=== PATIENT | female | born 1990 | race Two or more races ===

== ENCOUNTER 2016-10-22 07:21 | Emergency (ER) | payer SELFPAY ==
[~2016-10-22 07:21] MED LIST: AMOX1TAB10 PO; AMOX500C PO; ATEN-57 PO; ATEN100T PO; ATEN50TA PO; BENZ100C PO; BUTA1CAP29 PO; CIPR250T30 PO; CLAR500T PO; DICY20TA30 PO; DIPH25CA58 PO; DOCU-27 PO; DOCU100C5 PO; FERR-26 PO; FERR325T72 PO; FURO-68 PO; FURO20TA3 PO; HYDR-971 PO; HYDR200T PO; HYDR200T5 PO; LISI-334 PO; LISI2.5T PO; Lisinopril PO; MYCO250C PO; MYCO250C4 PO; OMEP20CA9 PO; OMEP40CA2 PO; OMEP40CA5 PO; PANT40TA3 PO; POLY17PO5 PO; PRED20TA PO; PROM25TA10 PO; TRAZ50TA15 PO
[2016-10-22] MEDS ORDERED: IV NORMAL SALINE 1000ML BAG 1,000 ML IV SCH (08:16)
[2016-10-22] MEDS ORDERED: ACETAMINOPHEN 500 MG TABLET PO ONE (08:30)
[2016-10-22 08:31] LABS: NEG OBC UR NEG; POS OBC UR POS
[2016-10-22 08:37] LABS: BILIRUBIN,URINE NEGATIVE (NEG); GLUCOSE,URINE NEGATIVE (NEG); NITRITE,URINE NEGATIVE (NEG); UROBILINOGEN,URINE 0.2 mg/dL (0.2 mg/dL)
[2016-10-22 08:54] LABS: PROTEIN,URINE 100 mg/dL (NEG-TRACE)
[2016-10-22 08:55] LABS: BACTERIA,URINE MODERATE /HPF (0-FEW); SQUAMOUS EPITHELIAL CELL,UR MOD /LPF
[2016-10-22 09:23] LABS: CALCIUM 8.4 mg/dL (8.5-10.1); CREATININE 1.5 mg/dL (0.6-1.0); GFR 41.7; POTASSIUM 3.9 mmol/L (3.5-5.1)
[2016-10-22 09:29] LABS: ALBUMIN 3.3 g/dL (3.4-5.0); ALBUMIN/GLOBULIN RATIO 0.9 (1.0-1.7); TOTAL BILIRUBIN 0.3 mg/dL (0.2-1.0); TOTAL PROTEIN 6.9 g/dL (6.4-8.2)
[2016-10-22 09:31] LABS: BASO % 0 % (0-3); EOS % 1 % (0-3); HEMATOCRIT 28.4 % (36.0-47.0); HEMOGLOBIN 9.7 g/dL (12.0-15.5); LYMPH # 1.5 x10^3/uL (1.0-4.8); LYMPH % 18 % (24-48); MEAN CORPUSCULAR HEMOGLOBIN 29 pg (25-35); MEAN CORPUSCULAR HGB CONC 34 g/dL (31-37); MEAN CORPUSCULAR VOLUME 85 fL (79-100); MONO % 6 % (0-9); NEUT % 75 % (31-73); PLATELET COUNT 228 x10^3/uL (140-400); RED BLOOD COUNT 3.35 x10^6/uL (3.50-5.40); RED CELL DISTRIBUTION WIDTH 13.3 % (11.5-14.5); WHITE BLOOD COUNT 8.6 x10^3/uL (4.0-11.0)
--- NOTE | 2016-10-22 10:07 | RAD ---
Indication pelvic pain. Nausea and dizziness. Reported positive urine test in the emergency room. Initially transabdominal scans were obtained. Initial transabdominal scans were supplemented with transvaginal scans.. A quantitative hCG value is not available. The uterus measures approximately 6.6 x 4.3 x 4.6 cm. On the transvaginal scans a gestational sac and yolk sac are seen. No pole is yet apparent. The findings would be compatible with an early, approximately 5 week, . The ovaries and adnexa appear unremarkable. IMPRESSION: Findings, as outlined above, compatible with early, approximately 5 week,
--- NOTE | 2016-10-22 10:13 | PHYS DOC ---
Past Medical History Past Medical History: Anemia, Hypertension, Renal Failure, UTI Additional Past Medical Histor: Glomerulonephritis syndrome, RF, Gastritis, Lupus Past Surgical History: Appendectomy Alcohol Use: None Drug Use: None Adult General Chief Complaint Chief Complaint: ABDOMINAL PAIN HPI HPI Patient is a 26 year old female with a history of chronic abdominal pain, lupus , and kidney disease, presents to the ED complaining of lower abdominal pain, lower back pain, nausea, some vomiting, for the last few days. Patient states she does not speak Mexican at all, she speaks Occitan, the sign language interpreter line was used. She is accompanied by a male significant other. Patient has been seen for abdominal pain in the ED in the past. She states that this pain is different in that it is also in her back. She does not have a current diagnosis of any chronic abdominal problem. The patient does have lupus and is on medications for that. She sees a doctor here [place] for her lupus and also sees Dr. Gonzalez for her kidney problems. She has been taking her medications as prescribed. Patient has been sexually active without contraception. She has been with the same male significant other for 4 years and has not used contraception and has not become . Has had no prior pregnancies. She also complains of headache since just today. She last took acetaminophen last night. Review of Systems Review of Systems Constitutional: Denies fever or chills [] Eyes: Denies change in visual acuity, redness, or eye pain [] HENT: Denies nasal congestion or sore throat [] Respiratory: Denies cough or shortness of breath [] Cardiovascular: Denies chest pain GI: As in history of present illness : Denies vaginal bleeding. Her last period was in early September. She usually does have a period monthly and she is late right now. Musculoskeletal: She has low back pain which she associates with her lower abdominal pain Integument: Denies rash or skin lesions [] Neurologic: She complains of a headache. Current Medications Current Medications Current Medications Medications (Trade) Dose Ordered Sig/Uma Start Time Stop Time Status Last Admin Dose Admin Acetaminophen (Tylenol) 1,000 mg 1X ONCE 10/22/16 08:30 10/22/16 08:31 DC 10/22/16 09:25 1,000 MG Sodium Chloride (Iv Sodium Chloride 0.9% 1000ml Bag) 1,000 ml @ 1,000 mls/hr Q1H 10/22/16 08:16 10/22/16 09:15 DC 10/22/16 09:24 1,000 MLS/HR Allergies Allergies Allergies Coded Allergies Type Severity Reaction Last Updated Verified No Known Drug Allergies 01/19/15 No Physical Exam Physical Exam Constitutional: Well developed, well nourished, no acute distress, non-toxic appearance. Alert, mentating normally, does not appear in any distress or dehydrated. HENT: Normocephalic, atraumatic, bilateral external ears normal, oropharynx moist, no oral exudates, nose normal. [] Eyes: conjunctiva normal, no discharge. [] Neck: Normal range of motion, no stridor. [] Cardiovascular:Heart rate regular rhythm, no murmur [] Lungs & Thorax: Bilateral breath sounds clear to auscultation [] Abdomen: Bowel sounds normal, soft, nondistended, uterus not palpable, no masses , no pulsatile masses. Mild tenderness to palpation in the suprapubic area. No tenderness bilaterally of the pelvis. No right lower quadrant tenderness. Skin: Warm, dry, no erythema, no rash. [] Back: No tenderness, no CVA tenderness. [] Extremities: No tenderness, no cyanosis, no clubbing, ROM intact, no edema. [] Neurologic: Alert and oriented X 3, normal motor function, normal sensory function, no focal deficits noted. [] Current Patient Data Vital Signs Vital Signs Date Time Temp Pulse Resp B/P Pulse Ox O2 Delivery O2 Flow Rate FiO2 10/22/16 07:42 98.8 20 122/66 Room Air 98.8 Lab Values Laboratory Tests Test 10/22/16 07:00 10/22/16 08:55 Urine Collection Type Void Urine Color Yellow Urine Clarity Clear Urine pH 6.0 Urine Specific [place] 1.010 Urine Protein 100mg/dL (NEG-TRACE) Urine Glucose (UA) Negativemg/dL (NEG) Urine Ketones (Stick) Negativemg/dL (NEG) Urine Blood Moderate (NEG) Urine Nitrite Negative (NEG) Urine Bilirubin Negative (NEG) Urine Urobilinogen Dipstick 0.2mg/dL (0.2 mg/dL) Urine Leukocyte Esterase Trace (NEG) Urine RBC 11-20/HPF (0-2) Urine WBC 1-4/HPF (0-4) Urine Squamous Epithelial Cells Mod/LPF Urine Bacteria Moderate/HPF (0-FEW) Urine Mucus Slight/LPF Urine Test Positive (NEG) White Blood Count 8.6x10^3/uL (4.0-11.0) Red Blood Count 3.35x10^6/uL (3.50-5.40) L Hemoglobin 9.7g/dL (12.0-15.5) L Hematocrit 28.4% (36.0-47.0) L Mean Corpuscular Volume 85fL (79-100) Mean Corpuscular Hemoglobin 29pg (25-35) Mean Corpuscular Hemoglobin Concent 34g/dL (31-37) Red Cell Distribution Width 13.3% (11.5-14.5) Platelet Count 228x10^3/uL (140-400) Neutrophils (%) (Auto) 75% (31-73) H Lymphocytes (%) (Auto) 18% (24-48) L Monocytes (%) (Auto) 6% (0-9) Eosinophils (%) (Auto) 1% (0-3) Basophils (%) (Auto) 0% (0-3) Neutrophils # (Auto) 6.5x10^3uL (1.8-7.7) Lymphocytes # (Auto) 1.5x10^3/uL (1.0-4.8) Monocytes # (Auto) 0.6x10^3/uL (0.0-1.1) Eosinophils # (Auto) 0.1x10^3/uL (0.0-0.7) Basophils # (Auto) 0.0x10^3/uL (0.0-0.2) Maternal Serum HCG Beta Subunit 652mIU/mL (0-6) H Sodium Level 143mmol/L (136-145) Potassium Level 3.9mmol/L (3.5-5.1) Chloride Level 106mmol/L (98-107) Carbon Dioxide Level 25mmol/L (21-32) Anion Gap 12 (6-14) Blood Urea Nitrogen 17mg/dL (7-20) Creatinine 1.5mg/dL (0.6-1.0) H Estimated GFR (Cockcroft-Gault) 41.7 BUN/Creatinine Ratio 11 (6-20) Glucose Level 99mg/dL (70-99) Calcium Level 8.4mg/dL (8.5-10.1) L Total Bilirubin 0.3mg/dL (0.2-1.0) Aspartate Amino Transferase (AST) 12U/L (15-37) L Alanine Aminotransferase (ALT) 8U/L (14-59) L Alkaline Phosphatase 69U/L (46-116) Total Protein 6.9g/dL (6.4-8.2) Albumin 3.3g/dL (3.4-5.0) L Albumin/Globulin Ratio 0.9 (1.0-1.7) L Lipase 363U/L (73-393) Laboratory Tests 10/22/16 08:55 Laboratory Tests 10/22/16 08:55 EKG EKG [] Radiology/Procedures Radiology/Procedures 26-year-old female who has a history of lupus and kidney disease, on medications for those conditions, who has had several ED visits for abdominal pain, presents today with lower abdominal pain and some nausea and vomiting. To her surprise, her test was positive. It's unclear whether this abdominal pain today is something that she has had before with her this is a new type of abdominal pain. She is having no vaginal bleeding. I discussed with the patient that we will get some labs and check a vaginal ultrasound and she is agreeable to that plan. Quantitative beta hCG 652. Labs are stable for this patient with anemia and kidney disease. OB ultrasound read by the radiologist remarkable only for a gestational sac consistent with 5 weeks, no pole or heart activity noted yet. Unremarkable ovaries and adnexa. Patient is stable for discharge home. I discussed with the patient drinking plenty of fluids when she is able. I encouraged her to see her lupus doctor and her kidney doctor as soon as possible but until then to continue taking all medications as prescribed. Also make an appointment with an OB doctor for a new OB evaluation as soon as possible. Course & Med Decision Making Course & Med Decision Making Pertinent Labs and Imaging studies reviewed. (See chart for details) [] Dragon Disclaimer Dragon Disclaimer This electronic medical record was generated, in whole or in part, using a voice recognition dictation system. Departure Departure Impression: Primary Impression: Gastroenteritis Additional Impression: Positive urine test Disposition: HOME, SELF-CARE Condition: STABLE Referrals: HEDY GONZALEZ MD (PCP) LINDQUIST,LYNN K MD Patient Instructions: Abdominal Pain During , [id number] Additional Instructions: Today, we did not find any serious cause of your symptoms. You may have had a stomach virus. Today your test was positive. Ultrasound shows that you are about 5 weeks . We date your from your last menstrual period. This means you are about 1 month . Your is so early, all they could see was a tiny little sac, they could not see a baby or heart beat yet. This may be because you are very early along in your . It is important to make follow-up appointments with your lupus doctor, your kidney specialist, and OB doctor. When you call for appointments, be sure to tell all of them that you are . Problem Qualifiers DIVYA ROSENTHAL MD Oct 22, 2016 10:12
[2016-10-22 10:51] VITALS: BP 112/69
== END 2016-10-22 11:16 | disposition home or self-care (01) ==
LOC: ER 07:21
DX: O26.891 Other specified pregnancy related conditions, first trimester (principal); K52.9 Noninfective gastroenteritis and colitis, unspecified; M54.5 Low back pain; I10 Essential (primary) hypertension; Z3A.01 Less than 8 weeks gestation of pregnancy
CPT/HCPCS: 36415; 76801; 76817; 80053; 81001; 81025; 83690; 84702; 85027; 87086; 96360; 99285; J7030

== ENCOUNTER 2016-10-25 21:33 | Observation (INO) | payer SELFPAY ==
[2016-10-25] MEDS ORDERED: IV RINGERS,LACTATED 1000ML 1,000 ML IV SCH (21:44)
[2016-10-25 22:47] LABS: BILIRUBIN,URINE NEGATIVE (NEG); GLUCOSE,URINE NEGATIVE (NEG); NITRITE,URINE NEGATIVE (NEG); PH,URINE 5.5; UROBILINOGEN,URINE 0.2 mg/dL (0.2 mg/dL)
[2016-10-25 22:51] LABS: PROTEIN,URINE 100 mg/dL (NEG-TRACE)
== END 2016-10-25 22:30 | disposition short-term general hospital (02) ==
LOC: 3 SO LND 21:33
PROVIDERS: ADMIT Specialist; ATTEND Specialist
DX: O22 Venous complications and hemorrhoids in pregnancy (principal); O26.891 Other specified pregnancy related conditions, first trimester; M54.5 Low back pain; Z3A.01 Less than 8 weeks gestation of pregnancy
CPT/HCPCS: 81003; G0378; G0379

== ENCOUNTER 2017-04-24 10:35 | Emergency (ER) | payer SELFPAY ==
[~2017-04-24] VITALS: Ht 160 cm; Wt 65.3 kg
[~2017-04-24 10:35] MED LIST changes: +DOCU-109 PO; -DOCU-27 PO; +DOCU100C28 PO; -DOCU100C5 PO; -MYCO250C4 PO; +MYCO250C44 PO; +POLY17PO29 PO; -POLY17PO5 PO
[2017-04-24 11:11] VITALS: BP 119/70
--- NOTE | 2017-04-24 11:12 | PHYS DOC ---
Past Medical History Past Medical History: Anemia, Hypertension, Renal Failure, UTI Additional Past Medical Histor: Glomerulonephritis syndrome, RF, Gastritis, Lupus Past Surgical History: Appendectomy Alcohol Use: None Drug Use: None Adult General Chief Complaint Chief Complaint: ABDOMINAL PAIN HPI HPI Patient is a 27 year old female presents to the emergency department with a history of epigastric pain for the last 3 weeks. Patient states it is a burning sensation. Has not take anything for the discomfort, however she has been seen for the pain in the past. Patient has a hx of Lupus. Denies nausea, vomiting or diarrhea. Review of Systems Review of Systems Constitutional: Denies fever or chills [] Eyes: Denies change in visual acuity, redness, or eye pain [] HENT: Denies nasal congestion or sore throat [] Respiratory: Denies cough or shortness of breath [] Cardiovascular: No additional information not addressed in HPI [] GI: epigastric abdominal pain, denies nausea, vomiting, bloody stools or diarrhea [] : Denies dysuria or hematuria [] Musculoskeletal: Denies back pain or joint pain [] Integument: Denies rash or skin lesions [] Neurologic: Denies headache, focal weakness or sensory changes [] Endocrine: Denies polyuria or polydipsia [] Current Medications Current Medications Current Medications Medications (Trade) Dose Ordered Sig/Uma Start Time Stop Time Status Last Admin Dose Admin Sucralfate (Carafate) 1 gm 1X ONCE 04/24/17 11:15 04/24/17 11:16 DC 04/24/17 11:18 1 GM Allergies Allergies Allergies Coded Allergies Type Severity Reaction Last Updated Verified No Known Drug Allergies 01/19/15 No Physical Exam Physical Exam Constitutional: Well developed, well nourished, no acute distress, non-toxic appearance. [] HENT: Normocephalic, atraumatic, bilateral external ears normal, oropharynx moist, no oral exudates, nose normal. [] Eyes: PERRLA, EOMI, conjunctiva normal, no discharge. [] Neck: Normal range of motion, no tenderness, supple, no stridor. [] Cardiovascular:Heart rate regular rhythm, no murmur [] Lungs & Thorax: Bilateral breath sounds clear to auscultation [] Abdomen: Bowel sounds hypoactive, soft, epigastric abdominal tenderness, no masses, no pulsatile masses. no rebound tenderness noted, no guarding noted. Skin: Warm, dry, no erythema, no rash. [] Back: No tenderness Extremities: No tenderness, no cyanosis, no clubbing, ROM intact, no edema. [] Neurologic: Alert and oriented X 3, normal motor function, normal sensory function, no focal deficits noted. [] Psychologic: Affect normal, judgement normal, mood normal. [] Current Patient Data Vital Signs Vital Signs Date Time Temp Pulse Resp B/P (MAP) Pulse Ox O2 Delivery O2 Flow Rate FiO2 04/24/17 11:11 98.6 82 16 119/70 (86) 100 Room Air 98.6 Lab Values Laboratory Tests Test 04/24/17 10:01 04/24/17 10:52 POC Urine HCG, Qualitative Hcg negative (Negative) Urine Collection Type Unknown Urine Color Yellow Urine Clarity Clear Urine pH 5.5 Urine Specific [place] 1.015 Urine Protein 100 mg/dL (NEG-TRACE) Urine Glucose (UA) Negative mg/dL (NEG) Urine Ketones (Stick) Negative mg/dL (NEG) Urine Blood Small (NEG) Urine Nitrite Negative (NEG) Urine Bilirubin Negative (NEG) Urine Urobilinogen Dipstick 0.2 mg/dL (0.2 mg/dL) Urine Leukocyte Esterase Negative (NEG) Urine RBC Occ /HPF (0-2) Urine WBC 0 /HPF (0-4) Urine Squamous Epithelial Cells Mod /LPF Urine Bacteria Moderate /HPF (0-FEW) Urine Hyaline Casts Few /HPF Urine Mucus Slight /LPF EKG EKG [] Radiology/Procedures Radiology/Procedures [] Course & Med Decision Making Course & Med Decision Making Pertinent Labs and Imaging studies reviewed. (See chart for details) Patient provided with carafate liquid here in the emergency department. 1144 Patient was re-evaluated after receiving carafate with patient stating her pain is better. Patient will be discharged home with carafate. Recommended to avoid fried, greasy, fatty foods. Patient will be discharged home in stable condition. Signs and symptoms to return to the emergency department has been provided. Recommended that patient followup with PCP in the next week. [] Dragon Disclaimer Dragon Disclaimer This electronic medical record was generated, in whole or in part, using a voice recognition dictation system. Departure Departure Impression: Primary Impression: Epigastric burning sensation Disposition: HOME, SELF-CARE Condition: STABLE Referrals: NO PCP (PCP) Patient Instructions: Gastroesophageal Reflux Disease, Adult, [id number] Additional Instructions: Activity as tolerated Medication as prescribed Avoid fried, greasy fatty foods. Followup with primary care provider in 7 days Return to emergency department as needed for signs and symptoms that become worse. Scripts Sucralfate (CARAFATE) 1 Gm/10 Ml Oral.susp 10 ML PO BID, #120 ML 1 Refill Prov: CARMELA MENDIOLA APRN 04/24/17 CARMELA MENDIOLA APRN Apr 24, 2017 11:12
[2017-04-24 11:13] LABS: BILIRUBIN,URINE NEGATIVE (NEG); GLUCOSE,URINE NEGATIVE (NEG); NITRITE,URINE NEGATIVE (NEG); PH,URINE 5.5; PROTEIN,URINE 100 mg/dL (NEG-TRACE); UROBILINOGEN,URINE 0.2 mg/dL (0.2 mg/dL)
[2017-04-24] MEDS ORDERED: SUCRALFATE 1 GM/10 ML ORAL.SUSP. PO ONE (11:15)
[2017-04-24 11:24] LABS: RBC,URINE OCC /HPF (0-2); WBC,URINE 0 /HPF (0-4)
[2017-04-24 11:25] LABS: BACTERIA,URINE MODERATE /HPF (0-FEW); SQUAMOUS EPITHELIAL CELL,UR MOD /LPF
[2017-04-24] MEDS ORDERED: SUCR1ORA5 PO (11:49)
== END 2017-04-24 12:50 | disposition home or self-care (01) ==
LOC: ER 10:35
DX: R10.13 Epigastric pain (principal); I12.9 Hypertensive chronic kidney disease with stage 1 through stage 4 chronic kidney disease, or unspecified chronic kidney disease; N18.9 Chronic kidney disease, unspecified; M32.9 Systemic lupus erythematosus, unspecified; Z87.440 Personal history of urinary (tract) infections; Z90.49 Acquired absence of other specified parts of digestive tract
CPT/HCPCS: 81001; 81025; 87086; 99284

== ENCOUNTER 2017-05-29 20:31 | Emergency (ER) | payer SELFPAY ==
[~2017-05-29 20:31] MED LIST changes: +ACET325T9 PO; +CHOL200074 PO; +FOLI1CAP5 PO; +LISI10TA2 PO; +NORE0.356 PO; +ONDA4TAB10 SL; +PANT40TA5 PO; +PRED-220 PO; +SUCR1ORA5 PO
[2017-05-29 21:10] LABS: BILIRUBIN,URINE NEGATIVE (NEG); GLUCOSE,URINE NEGATIVE (NEG); NITRITE,URINE NEGATIVE (NEG); PROTEIN,URINE 100 mg/dL (NEG-TRACE); UROBILINOGEN,URINE 0.2 mg/dL (0.2 mg/dL)
[2017-05-29 21:13] LABS: NEG OBC UR NEG; POS OBC UR POS
[2017-05-29] MEDS ORDERED: IV NORMAL SALINE 1000ML BAG 1,000 ML IV ONE (21:15)
[2017-05-29 21:17] LABS: BACTERIA,URINE MODERATE /HPF (0-FEW); SQUAMOUS EPITHELIAL CELL,UR MANY /LPF
[2017-05-29] MEDS ORDERED: ONDANSETRON PF 4 MG/2 ML VIAL. IV ONE (21:45)
[2017-05-29] MEDS ORDERED: ACETAMINOPHEN 500 MG TABLET PO ONE (21:45)
[2017-05-29] MEDS ORDERED: MORPHINE SULFATE 10 MG/ML VIAL. IV ONE (21:45)
--- NOTE | 2017-05-29 21:47 | PHYS DOC ---
Past Medical History Past Medical History: Anemia, Hypertension, Renal Failure, UTI Additional Past Medical Histor: Glomerulonephritis syndrome, RF, Gastritis, Lupus Past Surgical History: Appendectomy Alcohol Use: None Drug Use: None Adult General Chief Complaint Chief Complaint: SORE THROAT HPI HPI Patient is a 27 year old female presenting to the emergency department for multiple complaints including sore throat cough nasal congestion runny nose abdominal pain nausea and not feeling well. Patient has a history of lupus with possible kidney involvement and follows with a application support engineer and rehabilitation aide/scheduler. Patient was interviewed with blue phone certified court interpreter. I asked her what her primary complaint was today and she said that she does not have a primary complaint rather she says all of those symptoms are bothering her the most. The cough is nonproductive and has been going on for 2-3 days along with all the other symptoms as above. The abdominal pain is generalized and she says she was seen for a stomach infection recently. She made it sound as if this was 6 months ago but looking through the chart it appears she was seen in the emergency department on May [address] compatible with enteritis. Patient was wanting follow-up for the breast mass that was seen on the CT however it appears that she had a breast ultrasound the next day which look like a benign fibroadenoma but they wanted six-month follow-up. Patient is very difficult to get history from as certified court interpreter had to keep asking for clarification as she did not answer questions directly and she kept talking about other things other than my questions. Review of Systems Review of Systems Constitutional: + fever, chills [] Eyes: Denies change in visual acuity, redness, or eye pain [] HENT: + nasal congestion, sore throat [] Respiratory: + cough. No shortness of breath [] Cardiovascular: No additional information not addressed in HPI [] GI: + abdominal pain, nausea. No vomiting, bloody stools or diarrhea [] : Denies dysuria or hematuria [] Musculoskeletal: Denies back pain or joint pain [] Integument: Denies rash or skin lesions [] Neurologic: Denies headache, focal weakness or sensory changes [] Current Medications Current Medications Current Medications Medications (Trade) Dose Ordered Sig/Uma Start Time Stop Time Status Last Admin Dose Admin Acetaminophen (Tylenol) 1,000 mg 1X ONCE 05/29/17 21:45 05/29/17 21:46 DC 05/29/17 21:00 1,000 MG Morphine Sulfate 5 mg 1X ONCE 05/29/17 21:45 05/29/17 21:46 DC 05/29/17 22:14 5 MG Ondansetron HCl (Zofran) 8 mg 1X ONCE 05/29/17 21:45 05/29/17 21:46 DC 05/29/17 22:15 8 MG Sodium Chloride 1,000 ml @ 1,000 mls/hr 1X ONCE 05/29/17 21:15 05/29/17 22:14 DC 05/29/17 22:16 1,000 MLS/HR Allergies Allergies Allergies Coded Allergies Type Severity Reaction Last Updated Verified No Known Drug Allergies 01/19/15 No Physical Exam Physical Exam Constitutional: Well developed, well nourished, no acute distress, non-toxic appearance. [] HENT: Normocephalic, atraumatic, bilateral external ears normal, pharynx erythemetous, no oral exudates, nose normal. [] Eyes: PERRLA, EOMI, conjunctiva normal, no discharge. [] Neck: Normal range of motion, no tenderness, supple, no stridor. [] Cardiovascular:Heart rate regular rhythm but tachycardic at 110, no murmur [] Lungs & Thorax: Bilateral breath sounds clear to auscultation [] Abdomen: Bowel sounds normal, soft, no tenderness, no masses, no pulsatile masses. [] Skin: Warm, dry, no erythema, no rash. [] Back: No tenderness, no CVA tenderness. [] Extremities: No tenderness, no cyanosis, no clubbing, ROM intact, no edema. [] Neurologic: Alert and oriented X 3, normal motor function, normal sensory function, no focal deficits noted. [] Current Patient Data Vital Signs Vital Signs Date Time Temp Pulse Resp B/P (MAP) Pulse Ox O2 Delivery O2 Flow Rate FiO2 05/29/17 23:26 98.3 85 13 113/67 (82) 99 98.3 05/29/17 22:14 Room Air Lab Values Laboratory Tests Test 05/29/17 21:00 05/29/17 22:02 Urine Collection Type Unknown Urine Color Yellow Urine Clarity Clear Urine pH 6.0 Urine Specific [place] 1.015 Urine Protein 100 mg/dL (NEG-TRACE) Urine Glucose (UA) Negative mg/dL (NEG) Urine Ketones (Stick) Negative mg/dL (NEG) Urine Blood Large (NEG) Urine Nitrite Negative (NEG) Urine Bilirubin Negative (NEG) Urine Urobilinogen Dipstick 0.2 mg/dL (0.2 mg/dL) Urine Leukocyte Esterase Small (NEG) Urine RBC 11-20 /HPF (0-2) Urine WBC 11-20 /HPF (0-4) Urine Squamous Epithelial Cells Many /LPF Urine Bacteria Moderate /HPF (0-FEW) Urine Test Negative (NEG) White Blood Count 9.8 x10^3/uL (4.0-11.0) Red Blood Count 2.91 x10^6/uL (3.50-5.40) L Hemoglobin 8.6 g/dL (12.0-15.5) L Hematocrit 25.7 % (36.0-47.0) L Mean Corpuscular Volume 88 fL (79-100) Mean Corpuscular Hemoglobin 30 pg (25-35) Mean Corpuscular Hemoglobin Concent 34 g/dL (31-37) Red Cell Distribution Width 13.2 % (11.5-14.5) Platelet Count 205 x10^3/uL (140-400) Neutrophils (%) (Auto) 70 % (31-73) Lymphocytes (%) (Auto) 15 % (24-48) L Monocytes (%) (Auto) 9 % (0-9) Eosinophils (%) (Auto) 5 % (0-3) H Basophils (%) (Auto) 1 % (0-3) Neutrophils # (Auto) 6.9 x10^3uL (1.8-7.7) Lymphocytes # (Auto) 1.5 x10^3/uL (1.0-4.8) Monocytes # (Auto) 0.8 x10^3/uL (0.0-1.1) Eosinophils # (Auto) 0.5 x10^3/uL (0.0-0.7) Basophils # (Auto) 0.1 x10^3/uL (0.0-0.2) Prothrombin Time 13.4 SEC (11.7-14.0) Prothrombin Time INR 1.1 (0.8-1.1) PTT 36 SEC (24-38) Sodium Level 141 mmol/L (136-145) Potassium Level 3.6 mmol/L (3.5-5.1) Chloride Level 104 mmol/L (98-107) Carbon Dioxide Level 26 mmol/L (21-32) Anion Gap 11 (6-14) Blood Urea Nitrogen 27 mg/dL (7-20) H Creatinine 1.6 mg/dL (0.6-1.0) H Estimated GFR (Cockcroft-Gault) 38.4 BUN/Creatinine Ratio 17 (6-20) Glucose Level 96 mg/dL (70-99) Calcium Level 8.4 mg/dL (8.5-10.1) L Total Bilirubin 0.2 mg/dL (0.2-1.0) Aspartate Amino Transferase (AST) 10 U/L (15-37) L Alanine Aminotransferase (ALT) 12 U/L (14-59) L Alkaline Phosphatase 52 U/L (46-116) Creatine Kinase 25 U/L (26-192) L Total Protein 6.3 g/dL (6.4-8.2) L Albumin 3.3 g/dL (3.4-5.0) L Albumin/Globulin Ratio 1.1 (1.0-1.7) Lipase 379 U/L (73-393) Laboratory Tests 05/29/17 22:02 Laboratory Tests 05/29/17 22:02 EKG EKG [] Radiology/Procedures Radiology/Procedures History: Diffuse abdominal pain. Comparison: CT abdomen pelvis May 03, 2017. Technique: CT of the abdomen and pelvis was performed without intravenous or oral contrast. Exposure: One or more of the following individualized dose reduction techniques were utilized for this examination: 1. Automated exposure control 2. Adjustment of the mA and/or kV according to patient size 3. Use of iterative reconstruction technique Findings: Evaluation of solid organs is limited by lack of intravenous contrast. Evaluation of enteric structures may be limited by lack of oral contrast. Images of lower chest again demonstrate ovoid, lobulated breast mass involving the inferior left breast. Liver, spleen, pancreas, gallbladder, and bilateral adrenal glands are unremarkable. Bilateral kidneys and ureters are free stone or obstruction. No bowel obstruction or inflammation is identified. Urinary bladder is unremarkable. Uterus and adnexa unremarkable CT appearance. Impression: 1. No acute abnormality identified in the abdomen or pelvis. No evidence of urinary stone. 2. Left breast mass. Correlate with reports of breast imaging. Electronically signed by: Jose Juan Blevins MD (05/29/2017 11:33 PM) [facility] DICTATED and SIGNED BY: JOSE JUAN BLEVINS MD DATE: 05/29/172328 Normal heart size normal mediastinum and no obvious free air pneumothorax or opacity on chest x-ray Course & Med Decision Making Course & Med Decision Making Patient with nonspecific upper respiratory symptoms and abdominal pain with a fever. Likely viral in etiology however given patient's history we'll go ahead and treat with Zithromax. I will recommend that she takes Nasonex and will provide Donner for pain and cough and have her follow with her primary care provider in 2-3 days and come back to the ED sooner with worsening pain shortness of breath or other general concerns. Patient aware and agreeable with plan for discharge and verbalized understanding of the need for short-term follow-up and strict ED return precautions discussed as above. Of note patient asked me to refill her hydroxylate chlorothiazide which is one of her lupus medications. Patient does not have a primary care provider so I will do this for her but I told her she very much needs a primary care provider. Patient verbalized understanding. Dragon Disclaimer Dragon Disclaimer This electronic medical record was generated, in whole or in part, using a voice recognition dictation system. Departure Departure Impression: Primary Impression: Abdominal pain Additional Impression: Viral syndrome Disposition: 01 HOME, SELF-CARE Condition: STABLE Referrals: NO PCP (PCP) TERESA SOSA MD Patient Instructions: Viral Syndrome Additional Instructions: DRINK PLENTY OF FLUIDS AND EAT A GOOD DIET. TAKE OTC NASONEX FOR YOUR COUGH AND SINUS CONGESTION. TAKE 650MG OF TYLENOL EVERY 6 HOURS FOR YOUR FEVER. FOLLOW WITH YOUR PCP IN THE NEXT 2-3 DAYS AND COME BACK TO THE ED SOONER WITH ANY NEW OR WORSENING PAIN, SOA, OR OTHER GENERAL CONCERNS. Scripts Hydroxychloroquine Sulfate (HYDROXYCHLOROQUINE SULFATE) 200 Mg Tablet 1 TAB PO BID, #60 TAB 0 Refills Prov: ISAI HOFFMANN DO 05/30/17 Ondansetron (ZOFRAN ODT) 4 Mg Tab.rapdis 4 MG PO BID Y for NAUSEA/VOMITING, #10 TAB Prov: ISAI HOFFMANN DO 05/30/17 Azithromycin (ZITHROMAX PACKET) 1 Gm Packet 1 PACKET PO ONCE, #1 PACKET Prov: ISAI HOFFMANN DO 05/30/17 Hydrocodone/Apap 5-325 (NORCO 5-325 TABLET) 1 Each Tablet 1 TAB PO PRN Q6HRS Y for PAIN, #14 TAB 0 Refills Prov: ISAI HOFFMANN DO 05/30/17 Problem Qualifiers Primary Impression: Abdominal pain Abdominal location: generalized Qualified Codes: R10.84 - Generalized abdominal pain ISAI HOFFMANN DO May 29, 2017 21:46
[2017-05-29 22:18] LABS: BASO # 0.1 x10^3/uL (0.0-0.2); BASO % 1 % (0-3); EOS % 5 % (0-3); HEMATOCRIT 25.7 % (36.0-47.0); HEMOGLOBIN 8.6 g/dL (12.0-15.5); LYMPH # 1.5 x10^3/uL (1.0-4.8); LYMPH % 15 % (24-48); MEAN CORPUSCULAR HEMOGLOBIN 30 pg (25-35); MEAN CORPUSCULAR HGB CONC 34 g/dL (31-37); MEAN CORPUSCULAR VOLUME 88 fL (79-100); MONO % 9 % (0-9); NEUT % 70 % (31-73); PLATELET COUNT 205 x10^3/uL (140-400); RED BLOOD COUNT 2.91 x10^6/uL (3.50-5.40); RED CELL DISTRIBUTION WIDTH 13.2 % (11.5-14.5); WHITE BLOOD COUNT 9.8 x10^3/uL (4.0-11.0)
[2017-05-29 22:28] LABS: INR 1.1 (0.8-1.1); PROTHROMBIN TIME PATIENT 13.4 SEC (11.7-14.0)
[2017-05-29 22:33] LABS: CALCIUM 8.4 mg/dL (8.5-10.1); CREATININE 1.6 mg/dL (0.6-1.0); GFR 38.4; POTASSIUM 3.6 mmol/L (3.5-5.1)
[2017-05-29 22:39] LABS: ALBUMIN 3.3 g/dL (3.4-5.0); ALBUMIN/GLOBULIN RATIO 1.1 (1.0-1.7); TOTAL BILIRUBIN 0.2 mg/dL (0.2-1.0); TOTAL PROTEIN 6.3 g/dL (6.4-8.2)
[2017-05-29 23:26] VITALS: BP 113/67
--- NOTE | 2017-05-29 23:36 | RAD ---
History: Diffuse abdominal pain. Comparison: CT abdomen pelvis May 03, 2017. Technique: CT of the abdomen and pelvis was performed without intravenous or oral contrast. Exposure: One or more of the following individualized dose reduction techniques were utilized for this examination: 1. Automated exposure control 2. Adjustment of the mA and/or kV according to patient size 3. Use of iterative reconstruction technique Findings: Evaluation of solid organs is limited by lack of intravenous contrast. Evaluation of enteric structures may be limited by lack of oral contrast. Images of lower chest again demonstrate ovoid, lobulated breast mass involving the inferior left breast. Liver, spleen, pancreas, gallbladder, and bilateral adrenal glands are unremarkable. Bilateral kidneys and ureters are free stone or obstruction. No bowel obstruction or inflammation is identified. Urinary bladder is unremarkable. Uterus and adnexa unremarkable CT appearance. Impression: 1. No acute abnormality identified in the abdomen or pelvis. No evidence of urinary stone. 2. Left breast mass. Correlate with reports of breast imaging. Electronically signed by: Jose Juan Blevins MD (05/29/2017 11:33 PM) [facility]
[2017-05-30] MEDS ORDERED: HYDR200T5 PO (00:11)
[2017-05-30] MEDS ORDERED: AZIT1PAC PO (00:11)
[2017-05-30] MEDS ORDERED: ONDA4TAB10 PO (00:11)
[2017-05-30] MEDS ORDERED: HYDR-971 PO (00:11)
[2017-05-30 06:56] LABS: NEGATIVE OBC STREP NEG; POSITIVE OBC STREP POS
--- NOTE | 2017-05-30 08:02 | RAD ---
Single view chest History:Cough for one week An AP view of the chest is submitted. Comparison: 05/20/2016. Findings: There is no significant infiltrate, pleural effusion, or pneumothorax. The pericardial cardiac silhouette is within normal limits in size. The trachea is in the midline. No acute osseous abnormality is identified. Impression: There is no evidence of acute cardiopulmonary disease.
== END 2017-05-30 00:23 | disposition home or self-care (01) ==
LOC: ER 20:31
DX: R10.84 Generalized abdominal pain (principal); B34.9 Viral infection, unspecified; I12.9 Hypertensive chronic kidney disease with stage 1 through stage 4 chronic kidney disease, or unspecified chronic kidney disease; N18.9 Chronic kidney disease, unspecified; M32.9 Systemic lupus erythematosus, unspecified; Z87.440 Personal history of urinary (tract) infections; Z90.49 Acquired absence of other specified parts of digestive tract
CPT/HCPCS: 36415; 71010; 74176; 80053; 81001; 81025; 82550; 83690; 85025; 85610; 85730; 87040; 87070; 87086; 87880; 96361; 96374; 96375; 99285; J2270; J2405; J7030

== ENCOUNTER 2017-08-14 19:00 | Emergency (ER) | payer SELFPAY ==
[~2017-08-14] VITALS: Ht 160 cm; Wt 63.5 kg
[~2017-08-14 19:00] MED LIST changes: +AZIT1PAC PO; +IBUP-1007 PO; +IRON1TAB2 PO; +ONDA4TAB10 PO
[2017-08-14] MEDS ORDERED: ACETAMINOPHEN 325 MG TABLET. PO ONE (20:00)
[2017-08-14] MEDS ORDERED: ONDANSETRON PF 4 MG/2 ML VIAL. IV ONE (20:00)
[2017-08-14] MEDS ORDERED: ONDANSETRON ODT 4 MG TAB.RAPDIS. ONE (20:03)
[2017-08-14 20:12] LABS: BASO # 0.1 x10^3/uL (0.0-0.2); BASO % 1 % (0-3); EOS % 1 % (0-3); HEMATOCRIT 30.7 % (36.0-47.0); HEMOGLOBIN 10.1 g/dL (12.0-15.5); LYMPH # 1.4 x10^3/uL (1.0-4.8); LYMPH % 11 % (24-48); MEAN CORPUSCULAR HEMOGLOBIN 29 pg (25-35); MEAN CORPUSCULAR HGB CONC 33 g/dL (31-37); MEAN CORPUSCULAR VOLUME 89 fL (79-100); MONO % 6 % (0-9); NEUT % 82 % (31-73); PLATELET COUNT 245 x10^3/uL (140-400); RED BLOOD COUNT 3.45 x10^6/uL (3.50-5.40); RED CELL DISTRIBUTION WIDTH 13.1 % (11.5-14.5); WHITE BLOOD COUNT 13.3 x10^3/uL (4.0-11.0)
[2017-08-14] MEDS ORDERED: ONDANSETRON ODT 4 MG TAB.RAPDIS. PO ONE (20:15)
[2017-08-14 20:16] LABS: BILIRUBIN,URINE NEGATIVE (NEG); GLUCOSE,URINE NEGATIVE (NEG); NITRITE,URINE NEGATIVE (NEG); PROTEIN,URINE 100 mg/dL (NEG-TRACE); UROBILINOGEN,URINE 0.2 mg/dL (0.2 mg/dL)
[2017-08-14 20:29] LABS: CALCIUM 8.9 mg/dL (8.5-10.1); CREATININE 1.7 mg/dL (0.6-1.0); GFR 35.8; POTASSIUM 4.1 mmol/L (3.5-5.1)
[2017-08-14 20:31] LABS: BACTERIA,URINE FEW /HPF (0-FEW); RBC,URINE RARE /HPF (0-2); SQUAMOUS EPITHELIAL CELL,UR OCC /LPF; WBC,URINE OCC /HPF (0-4)
[2017-08-14 20:35] LABS: ALBUMIN 3.6 g/dL (3.4-5.0); ALBUMIN/GLOBULIN RATIO 1.1 (1.0-1.7); TOTAL BILIRUBIN 0.2 mg/dL (0.2-1.0)
[2017-08-14 22:13] VITALS: BP 111/65
[2017-08-14] MEDS ORDERED: ONDA4TAB10 SL (22:21)
--- NOTE | 2017-08-14 22:21 | PHYS DOC ---
Past Medical History Past Medical History: Anemia, Other Additional Past Medical Histor: Lupus, Kidney problems, "lungs swell" Past Surgical History: Appendectomy Alcohol Use: None Drug Use: None Adult General Chief Complaint Chief Complaint: ABDOMINAL PAIN HPI HPI Patient is a 27 year old female with a [place] past medical history including a history for lupus, renal insufficiency, pancreatitis, presents to the ER today secondary to midepigastric discomfort with nausea. Patient presents the pain started in her stomach approximately 12 days ago. Patient reports she's had no fevers. Patient does have nausea with no vomiting. Patient denies any dysuria frequency urgency. Patient has any diarrhea or vomiting. Patient reports that she has been tolerating by mouth's well and is extremely hungry at this time. Patient reports that she has had pancreatitis inflammation or pancreas in the past but this does not feel similar to that prior sensation that she's had. Patient denies any history of diabetes liver or lung problems. Patient's last menstrual period was on July 11, 2017 and she is very concerned that she might be . Review of systems: Constitutional: Denies fever or chills Eyes: Denies change in visual acuity, redness, or eye pain All other systems were reviewed and found to be within normal limits, except as documented in this note. Physical exam: Constitutional: Well developed, well nourished, no acute distress, non-toxic appearance. HENT: Normocephalic, atraumatic, bilateral external ears normal, Eyes: EOMI, conjunctiva normal, no discharge. Neck: Normal range of motion, no tenderness, supple, no stridor. Cardiovascular:Heart rate regular rhythm Lungs & Thorax: Bilateral breath sounds clear to auscultation Abdomen: Bowel sounds normal, soft, patient with mild tenderness to palpation to her mid epigastric area. Patient has no rebound or guarding. Patient has normal active bowel sounds. Tenderness, no masses, no pulsatile masses. Skin: Warm, dry, no erythema, no rash. Back: No tenderness, no CVA tenderness. Extremities: No tenderness, no cyanosis, no clubbing, ROM intact, no edema. Neurologic: Alert and oriented X 3, normal motor function, normal sensory function, no focal deficits noted. Psychologic: Affect normal, judgement normal, mood normal. Assessment and plan This is a 27-year-old female who presents to the ER today secondary to midepigastric discomfort. Patient's ER workup is been unremarkable. Patient's lipase is slightly elevated however it is not within the 3 times normal range to diagnose pancreatitis. Patient's presentation is typical for pancreatitis as she is currently currently hungry and she is tolerating by mouth's well. Although this might be early pancreatitis, I feel that the patient's symptoms are not consistent with pancreatitis. Patient has been given by mouth's here in the ED per her request. She reports that she is extremely hungry. She is tolerated the food without any problems. Patient will be discharged home at this time with prescription for Zofran to assist with her nausea no be instructed to follow-up with her primary care physician for further long-term management of her chronic conditions. Current Medications Current Medications Current Medications Medications (Trade) Dose Ordered Sig/Uma Start Time Stop Time Status Last Admin Dose Admin Acetaminophen (Tylenol) 650 mg 1X ONCE 08/14/17 20:00 08/14/17 20:01 DC 08/14/17 20:12 650 MG Ondansetron HCl (Zofran Odt) 4 mg 1X ONCE 08/14/17 20:15 08/14/17 20:16 DC 08/14/17 20:13 4 MG Ondansetron HCl (Zofran) 4 mg 1X ONCE 08/14/17 20:00 08/14/17 20:07 DC Allergies Allergies Allergies Coded Allergies Type Severity Reaction Last Updated Verified No Known Drug Allergies 01/19/15 No Current Patient Data Vital Signs Vital Signs Date Time Temp Pulse Resp B/P (MAP) Pulse Ox O2 Delivery O2 Flow Rate FiO2 08/14/17 20:13 82 113/60 (77) 98 Room Air 08/14/17 19:18 98.3 16 98.3 Lab Values Laboratory Tests Test 08/14/17 19:02 08/14/17 19:14 08/14/17 19:58 Urine Color Yellow Urine Clarity Clear Urine pH 6.0 Urine Specific [place] 1.010 Urine Protein 100 mg/dL (NEG-TRACE) Urine Glucose (UA) Negative mg/dL (NEG) Urine Ketones (Stick) Negative mg/dL (NEG) Urine Blood Small (NEG) Urine Nitrite Negative (NEG) Urine Bilirubin Negative (NEG) Urine Urobilinogen Dipstick 0.2 mg/dL (0.2 mg/dL) Urine Leukocyte Esterase Negative (NEG) Urine RBC Rare /HPF (0-2) Urine WBC Occ /HPF (0-4) Urine Squamous Epithelial Cells Occ /LPF Urine Bacteria Few /HPF (0-FEW) POC Urine HCG, Qualitative Hcg negative (Negative) White Blood Count 13.3 x10^3/uL (4.0-11.0) H Red Blood Count 3.45 x10^6/uL (3.50-5.40) L Hemoglobin 10.1 g/dL (12.0-15.5) L Hematocrit 30.7 % (36.0-47.0) L Mean Corpuscular Volume 89 fL (79-100) Mean Corpuscular Hemoglobin 29 pg (25-35) Mean Corpuscular Hemoglobin Concent 33 g/dL (31-37) Red Cell Distribution Width 13.1 % (11.5-14.5) Platelet Count 245 x10^3/uL (140-400) Neutrophils (%) (Auto) 82 % (31-73) H Lymphocytes (%) (Auto) 11 % (24-48) L Monocytes (%) (Auto) 6 % (0-9) Eosinophils (%) (Auto) 1 % (0-3) Basophils (%) (Auto) 1 % (0-3) Neutrophils # (Auto) 10.9 x10^3uL (1.8-7.7) H Lymphocytes # (Auto) 1.4 x10^3/uL (1.0-4.8) Monocytes # (Auto) 0.8 x10^3/uL (0.0-1.1) Eosinophils # (Auto) 0.1 x10^3/uL (0.0-0.7) Basophils # (Auto) 0.1 x10^3/uL (0.0-0.2) Sodium Level 139 mmol/L (136-145) Potassium Level 4.1 mmol/L (3.5-5.1) Chloride Level 102 mmol/L (98-107) Carbon Dioxide Level 30 mmol/L (21-32) Anion Gap 7 (6-14) Blood Urea Nitrogen 35 mg/dL (7-20) H Creatinine 1.7 mg/dL (0.6-1.0) H Estimated GFR (Cockcroft-Gault) 35.8 BUN/Creatinine Ratio 21 (6-20) H Glucose Level 103 mg/dL (70-99) H Calcium Level 8.9 mg/dL (8.5-10.1) Total Bilirubin 0.2 mg/dL (0.2-1.0) Aspartate Amino Transferase (AST) 13 U/L (15-37) L Alanine Aminotransferase (ALT) 16 U/L (14-59) Alkaline Phosphatase 60 U/L (46-116) Total Protein 7.0 g/dL (6.4-8.2) Albumin 3.6 g/dL (3.4-5.0) Albumin/Globulin Ratio 1.1 (1.0-1.7) Lipase 625 U/L (73-393) H Laboratory Tests 08/14/17 19:58 Laboratory Tests 08/14/17 19:58 EKG EKG [] Radiology/Procedures Radiology/Procedures [] Course & Med Decision Making Course & Med Decision Making Pertinent Labs and Imaging studies reviewed. (See chart for details) [] Dragon Disclaimer Dragon Disclaimer This electronic medical record was generated, in whole or in part, using a voice recognition dictation system. Departure Departure Impression: Primary Impression: Abdominal pain Disposition: HOME, SELF-CARE Condition: IMPROVED Referrals: NO PCP (PCP) Patient Instructions: Abdominal Pain (Nonspecific), Lupus Scripts Ondansetron (ZOFRAN ODT) 4 Mg Tab.rapdis 1 TAB SL Q6HRS Y for NAUSEA, #12 TAB Prov: NOAH BARRAGAN MD 08/14/17 NOAH BARRAGAN MD Aug 14, 2017 22:21
== END 2017-08-14 22:34 | disposition home or self-care (01) ==
LOC: ER 19:00
DX: R10.13 Epigastric pain (principal); R11.0 Nausea; M32.9 Systemic lupus erythematosus, unspecified
CPT/HCPCS: 36415; 80053; 81001; 81025; 83690; 85025; 99284; Q0162

== ENCOUNTER → 2017-09-23 | Outpatient (CLI) | payer SELFPAY ==
[2017-05-29 23:26] VITALS: BP_DIAS 67
[2017-09-08 10:58] VITALS: BP_SYST 109
[~2017-09-23] MED LIST changes: +AZAT50TA PO; +CIPR500T94 PO; +FOLI1CAP10 PO; +METH4TAB2 PO
--- NOTE | 2017-09-23 13:40 | RAD ---
Left breast diagnostic ultrasound History: Follow-up benign-appearing mass Sonographic examination was performed of the 8:00 left breast and left axilla multiple static images were obtained Comparison: May 04, 2017 The benign-appearing mass in the 8:00 left breast 4 centimeter from the nipple is again seen and measures 2.5 x 2.5 x 1.3 cm. It is gently lobulated nonshadowing wider than tall and has no significant detectable blood flow. There are no suspicious findings. Impression: Benign-appearing mass consistent with a fibroadenoma. Recommend patient return for routine screening mammography at age 39. These results were given to the patient in person. BI-RADS Category 2: Benign.
== END | disposition home or self-care (01) ==
LOC: US 13:00
PROVIDERS: ATTEND Internal Medicine Hematology & Oncology
DX: N63.20 Unspecified lump in the left breast, unspecified quadrant (principal)
CPT/HCPCS: 76641

== ENCOUNTER 2017-11-07 19:39 | Emergency (ER) | payer SELFPAY ==
[2017-11-07 19:56] LABS: URINE HCG POC HCG POSITIVE (Negative)
[2017-11-07 20:49] LABS: ADD MAN DIFF? NO
[2017-11-07 20:52] LABS: BASO # 0.1 x10^3/uL (0.0-0.2); BASO % 1 % (0-3); EOS # 0.1 x10^3/uL (0.0-0.7); EOS % 1 % (0-3); HEMATOCRIT 25.3 % (36.0-47.0); HEMOGLOBIN 8.3 g/dL (12.0-15.5); LYMPH # 2.4 x10^3/uL (1.0-4.8); LYMPH % 24 % (24-48); MEAN CORPUSCULAR HEMOGLOBIN 30 pg (25-35); MEAN CORPUSCULAR HGB CONC 33 g/dL (31-37); MEAN CORPUSCULAR VOLUME 90 fL (79-100); MONO # 0.7 x10^3/uL (0.0-1.1); MONO % 7 % (0-9); NEUT # 6.5 x10^3uL (1.8-7.7); NEUT % 67 % (31-73); PLATELET COUNT 220 x10^3/uL (140-400); RED BLOOD COUNT 2.82 x10^6/uL (3.50-5.40); RED CELL DISTRIBUTION WIDTH 13.7 % (11.5-14.5); WHITE BLOOD COUNT 9.8 x10^3/uL (4.0-11.0)
[2017-11-07 20:54] LABS: BILIRUBIN,URINE NEGATIVE (NEG); CLARITY,URINE CLEAR; COLOR,URINE YELLOW; GLUCOSE,URINE NEGATIVE (NEG); NITRITE,URINE NEGATIVE (NEG); PROTEIN,URINE 100 mg/dL (NEG-TRACE); UROBILINOGEN,URINE 0.2 mg/dL (0.2 mg/dL)
[2017-11-07 21:03] LABS: BACTERIA,URINE MODERATE /HPF (0-FEW); SQUAMOUS EPITHELIAL CELL,UR MOD /LPF
[2017-11-07 21:04] LABS: ANION GAP 9 (6-14); BLOOD UREA NITROGEN 27 mg/dL (7-20); BUN/CREATININE RATIO 18 (6-20); CALCIUM 8.7 mg/dL (8.5-10.1); CARBON DIOXIDE 26 mmol/L (21-32); CHLORIDE 102 mmol/L (98-107); CREATININE 1.5 mg/dL (0.6-1.0); GFR 41.3; GLUCOSE 100 mg/dL (70-99); POTASSIUM 4.1 mmol/L (3.5-5.1); SODIUM 137 mmol/L (136-145)
[2017-11-07 21:10] LABS: ALBUMIN 3.6 g/dL (3.4-5.0); ALBUMIN/GLOBULIN RATIO 1.1 (1.0-1.7); ALK PHOS 52 U/L (46-116); ALT (SGPT) 14 U/L (14-59); AST (SGOT) 12 U/L (15-37); TOTAL BILIRUBIN 0.1 mg/dL (0.2-1.0)
== END 2017-11-08 00:05 | disposition home or self-care (01) ==
LOC: ER 11-08 00:05
DX: O99.519 Diseases of the respiratory system complicating pregnancy, unspecified trimester (principal); J06.9 Acute upper respiratory infection, unspecified; O26.899 Other specified pregnancy related conditions, unspecified trimester; R10.9 Unspecified abdominal pain; O99.89 Other specified diseases and conditions complicating pregnancy, childbirth and the puerperium; M32.9 Systemic lupus erythematosus, unspecified; M54.5 Low back pain; Z90.49 Acquired absence of other specified parts of digestive tract; Z3A.00 Weeks of gestation of pregnancy not specified
CPT/HCPCS: 36415; 76801; 80053; 81001; 81025; 84702; 85025; 86900; 86901; 87086; 99285-25

== ENCOUNTER 2017-11-13 13:32 | Emergency (ER) | payer SELFPAY ==
[2017-11-13 13:47] LABS: URINE HCG POC HCG POSITIVE (Negative)
[2017-11-13] MEDS: ONDANSETRON PF 4 MG/2 ML VIAL. IV ×2 (14:12)
[2017-11-13] MEDS: FAMOTIDINE 20 MG/2 ML VIAL IVP ×2 (14:12)
[2017-11-13] MEDS: IV NORMAL SALINE 1000ML BAG 1,000 ML IV ×2 (14:12)
[2017-11-13 14:14] LABS: BASO % 0 % (0-3); EOS % 0 % (0-3); HEMATOCRIT 24.1 % (36.0-47.0); HEMOGLOBIN 8.2 g/dL (12.0-15.5); LYMPH # 0.7 x10^3/uL (1.0-4.8); LYMPH % 8 % (24-48); MEAN CORPUSCULAR HEMOGLOBIN 31 pg (25-35); MEAN CORPUSCULAR HGB CONC 34 g/dL (31-37); MEAN CORPUSCULAR VOLUME 90 fL (79-100); MONO # 0.2 x10^3/uL (0.0-1.1); MONO % 2 % (0-9); NEUT # 7.6 x10^3uL (1.8-7.7); NEUT % 90 % (31-73); PLATELET COUNT 202 x10^3/uL (140-400); RED BLOOD COUNT 2.68 x10^6/uL (3.50-5.40); RED CELL DISTRIBUTION WIDTH 13.2 % (11.5-14.5); WHITE BLOOD COUNT 8.5 x10^3/uL (4.0-11.0)
[2017-11-13 14:20] LABS: BILIRUBIN,URINE NEGATIVE (NEG); CLARITY,URINE CLEAR; COLOR,URINE YELLOW; GLUCOSE,URINE NEGATIVE (NEG); NITRITE,URINE NEGATIVE (NEG); PH,URINE 5.5; PROTEIN,URINE 100 mg/dL (NEG-TRACE); UROBILINOGEN,URINE 0.2 mg/dL (0.2 mg/dL)
[2017-11-13 14:27] LABS: ADD MAN DIFF? YES
[2017-11-13 14:29] LABS: ANION GAP 10 (6-14); BLOOD UREA NITROGEN 17 mg/dL (7-20); BUN/CREATININE RATIO 13 (6-20); CALCIUM 9.1 mg/dL (8.5-10.1); CARBON DIOXIDE 23 mmol/L (21-32); CHLORIDE 104 mmol/L (98-107); CREATININE 1.3 mg/dL (0.6-1.0); GFR 48.8; GLUCOSE 115 mg/dL (70-99); POTASSIUM 4.1 mmol/L (3.5-5.1); SODIUM 137 mmol/L (136-145)
[2017-11-13 14:34] LABS: ALBUMIN 3.2 g/dL (3.4-5.0); ALBUMIN/GLOBULIN RATIO 0.8 (1.0-1.7); ALK PHOS 56 U/L (46-116); ALT (SGPT) 14 U/L (14-59); AST (SGOT) 12 U/L (15-37); LIPASE 476 U/L (73-393); TOTAL BILIRUBIN 0.2 mg/dL (0.2-1.0); TOTAL PROTEIN 7.1 g/dL (6.4-8.2)
[2017-11-13 14:37] LABS: BACTERIA,URINE MODERATE /HPF (0-FEW); SQUAMOUS EPITHELIAL CELL,UR FEW /LPF; WBC,URINE RARE /HPF (0-4)
[2017-11-13 16:00] LABS: % BANDS 7 % (0-9); % LYMPHS 6 % (24-48); % MONOS 4 % (0-10); % SEGS 83 % (35-66)
[2017-11-13 16:10] LABS: PLT ESTIMATE ADEQUATE (ADEQUATE); TOXIC GRANULATION SLIGHT
== END 2017-11-13 16:26 | disposition home or self-care (01) ==
LOC: ER 13:32
DX: O21.0 Mild hyperemesis gravidarum (principal); O26.891 Other specified pregnancy related conditions, first trimester; R19.7 Diarrhea, unspecified; O99.89 Other specified diseases and conditions complicating pregnancy, childbirth and the puerperium; M32.9 Systemic lupus erythematosus, unspecified; Z90.49 Acquired absence of other specified parts of digestive tract; Z3A.01 Less than 8 weeks gestation of pregnancy
CPT/HCPCS: 36415; 80053; 81001; 81025; 83690; 85007; 85025; 87086; 96361; 96374; 96375; 99284-25; J2405; J7030; S0028

== ENCOUNTER 2017-11-20 13:45 | Emergency (ER) | payer SELFPAY ==
[2017-11-20] MEDS: IV NORMAL SALINE 1000ML BAG 1,000 ML IV ×2 (15:21)
[2017-11-20 15:29] LABS: ADD MAN DIFF? NO
[2017-11-20 15:32] LABS: BASO # 0.1 x10^3/uL (0.0-0.2); BASO % 0 % (0-3); EOS % 0 % (0-3); LYMPH # 1.3 x10^3/uL (1.0-4.8); LYMPH % 9 % (24-48); MEAN CORPUSCULAR HEMOGLOBIN 30 pg (25-35); MEAN CORPUSCULAR HGB CONC 34 g/dL (31-37); MEAN CORPUSCULAR VOLUME 89 fL (79-100); MONO # 0.5 x10^3/uL (0.0-1.1); MONO % 4 % (0-9); NEUT # 12.1 x10^3uL (1.8-7.7); NEUT % 87 % (31-73); PLATELET COUNT 259 x10^3/uL (140-400); RED BLOOD COUNT 3.02 x10^6/uL (3.50-5.40); RED CELL DISTRIBUTION WIDTH 13.4 % (11.5-14.5)
[2017-11-20] MEDS: ACETAMINOPHEN 500 MG TABLET PO ×2 (15:32)
[2017-11-20] MEDS: ONDANSETRON PF 4 MG/2 ML VIAL. IV ×2 (15:33)
[2017-11-20 15:35] LABS: BILIRUBIN,URINE NEGATIVE (NEG); CLARITY,URINE CLOUDY; COLOR,URINE YELLOW; GLUCOSE,URINE NEGATIVE (NEG); NITRITE,URINE NEGATIVE (NEG); PROTEIN,URINE 100 mg/dL (NEG-TRACE); UROBILINOGEN,URINE 0.2 mg/dL (0.2 mg/dL)
[2017-11-20 15:39] LABS: ANION GAP 8 (6-14); BLOOD UREA NITROGEN 20 mg/dL (7-20); BUN/CREATININE RATIO 14 (6-20); CALCIUM 8.9 mg/dL (8.5-10.1); CARBON DIOXIDE 27 mmol/L (21-32); CHLORIDE 101 mmol/L (98-107); CREATININE 1.4 mg/dL (0.6-1.0); GFR 44.8; GLUCOSE 105 mg/dL (70-99); POTASSIUM 4.9 mmol/L (3.5-5.1); SODIUM 136 mmol/L (136-145)
[2017-11-20 15:46] LABS: ALBUMIN 3.5 g/dL (3.4-5.0); ALBUMIN/GLOBULIN RATIO 0.9 (1.0-1.7); ALK PHOS 56 U/L (46-116); ALT (SGPT) 21 U/L (14-59); AST (SGOT) 17 U/L (15-37); TOTAL BILIRUBIN 0.2 mg/dL (0.2-1.0); TOTAL PROTEIN 7.2 g/dL (6.4-8.2)
[2017-11-20 15:47] LABS: BACTERIA,URINE MODERATE /HPF (0-FEW); SQUAMOUS EPITHELIAL CELL,UR OCC /LPF
[2017-11-21 07:56] LABS: NEGATIVE OBC STREP NEG; POSITIVE OBC STREP POS
== END 2017-11-20 17:45 | disposition home or self-care (01) ==
LOC: ER 13:45
DX: N39.0 Urinary tract infection, site not specified (principal); R10.84 Generalized abdominal pain; R11.0 Nausea; Z90.49 Acquired absence of other specified parts of digestive tract
CPT/HCPCS: 36415; 76801; 80053; 81001; 83735; 84702; 85025; 87070; 87086; 87880; 96361; 96365; 96375; 99285-25; J0690; J2405; J7030

== ENCOUNTER 2017-12-16 18:32 | Inpatient (IN) | payer SELFPAY ==
[2017-12-16 18:53] LABS: URINE HCG POC HCG POSITIVE (Negative)
[2017-12-16 18:57] LABS: BILIRUBIN,URINE NEGATIVE (NEG); CLARITY,URINE CLEAR; COLOR,URINE YELLOW; GLUCOSE,URINE NEGATIVE (NEG); NITRITE,URINE NEGATIVE (NEG); PROTEIN,URINE 100 mg/dL (NEG-TRACE); UROBILINOGEN,URINE 0.2 mg/dL (0.2 mg/dL)
[2017-12-16 19:08] LABS: BACTERIA,URINE MODERATE /HPF (0-FEW); RBC,URINE 20-40 /HPF (0-2); SQUAMOUS EPITHELIAL CELL,UR MOD /LPF
[2017-12-16 19:27] LABS: ADD MAN DIFF? NO
[2017-12-16 19:28] LABS: BASO % 0 % (0-3); EOS % 0 % (0-3); HEMATOCRIT 26.6 % (36.0-47.0); HEMOGLOBIN 9.1 g/dL (12.0-15.5); LYMPH # 1.2 x10^3/uL (1.0-4.8); LYMPH % 10 % (24-48); MEAN CORPUSCULAR HEMOGLOBIN 31 pg (25-35); MEAN CORPUSCULAR HGB CONC 34 g/dL (31-37); MEAN CORPUSCULAR VOLUME 89 fL (79-100); MONO # 0.6 x10^3/uL (0.0-1.1); MONO % 5 % (0-9); NEUT # 10.6 x10^3uL (1.8-7.7); NEUT % 85 % (31-73); PLATELET COUNT 199 x10^3/uL (140-400); RED BLOOD COUNT 2.99 x10^6/uL (3.50-5.40); WHITE BLOOD COUNT 12.6 x10^3/uL (4.0-11.0)
[2017-12-16 19:39] LABS: ANION GAP 7 (6-14); BLOOD UREA NITROGEN 20 mg/dL (7-20); BUN/CREATININE RATIO 13 (6-20); CALCIUM 8.6 mg/dL (8.5-10.1); CARBON DIOXIDE 25 mmol/L (21-32); CHLORIDE 105 mmol/L (98-107); CREATININE 1.5 mg/dL (0.6-1.0); GFR 41.3; GLUCOSE 114 mg/dL (70-99); POTASSIUM 4.6 mmol/L (3.5-5.1); SODIUM 137 mmol/L (136-145)
[2017-12-16 19:47] LABS: ALBUMIN 3.1 g/dL (3.4-5.0); ALBUMIN/GLOBULIN RATIO 0.9 (1.0-1.7); ALK PHOS 47 U/L (46-116); ALT (SGPT) 23 U/L (14-59); AST (SGOT) 14 U/L (15-37); LIPASE 536 U/L (73-393); TOTAL BILIRUBIN 0.2 mg/dL (0.2-1.0); TOTAL PROTEIN 6.7 g/dL (6.4-8.2)
[2017-12-16] MEDS: ONDANSETRON PF 4 MG/2 ML VIAL. IV (20:01)
[2017-12-16] MEDS: IV DEXTROSE 5% - 0.9 % NACL 1,000 ML IV (22:13)
[2017-12-16] MEDS: ACETAMINOPHEN 325 MG TABLET. PO (22:13)
[2017-12-17 04:42] LABS: ADD MAN DIFF? NO
[2017-12-17 04:48] LABS: BASO % 0 % (0-3); EOS # 0.1 x10^3/uL (0.0-0.7); EOS % 1 % (0-3); HEMATOCRIT 24.7 % (36.0-47.0); HEMOGLOBIN 8.2 g/dL (12.0-15.5); LYMPH # 2.6 x10^3/uL (1.0-4.8); LYMPH % 19 % (24-48); MEAN CORPUSCULAR HEMOGLOBIN 30 pg (25-35); MEAN CORPUSCULAR HGB CONC 33 g/dL (31-37); MEAN CORPUSCULAR VOLUME 88 fL (79-100); MONO # 0.9 x10^3/uL (0.0-1.1); MONO % 7 % (0-9); NEUT # 9.9 x10^3uL (1.8-7.7); NEUT % 73 % (31-73); PLATELET COUNT 177 x10^3/uL (140-400); RED BLOOD COUNT 2.79 x10^6/uL (3.50-5.40); RED CELL DISTRIBUTION WIDTH 12.9 % (11.5-14.5); WHITE BLOOD COUNT 13.5 x10^3/uL (4.0-11.0)
[2017-12-17 05:26] LABS: ALBUMIN 2.7 g/dL (3.4-5.0); ALBUMIN/GLOBULIN RATIO 0.9 (1.0-1.7); ALK PHOS 43 U/L (46-116); ALT (SGPT) 18 U/L (14-59); ANION GAP 7 (6-14); AST (SGOT) 10 U/L (15-37); BLOOD UREA NITROGEN 20 mg/dL (7-20); BUN/CREATININE RATIO 14 (6-20); CALCIUM 8.3 mg/dL (8.5-10.1); CARBON DIOXIDE 24 mmol/L (21-32); CHLORIDE 107 mmol/L (98-107); CREATININE 1.4 mg/dL (0.6-1.0); GFR 44.8; GLUCOSE 102 mg/dL (70-99); POTASSIUM 3.9 mmol/L (3.5-5.1); SODIUM 138 mmol/L (136-145); TOTAL BILIRUBIN 0.1 mg/dL (0.2-1.0); TOTAL PROTEIN 5.7 g/dL (6.4-8.2)
[2017-12-17] MEDS: ACETAMINOPHEN 325 MG TABLET. PO ×2 (08:16→18:31)
[2017-12-17] MEDS: PANTOPRAZOLE IV PUSH 40 MG VIAL. IVP (08:26)
[2017-12-17] MEDS: IV RINGERS,LACTATED 1000ML 1,000 ML IV ×3 (08:42→21:20)
[2017-12-17] MEDS: ONDANSETRON PF 4 MG/2 ML VIAL. IV (12:24)
[2017-12-17] MEDS: HYDROXYCHLOROQUINE 200 MG TABLET PO (14:00)
[2017-12-17] MEDS: ASPIRIN ENTERIC COATED 81 MG TABLET.DR. PO (14:00)
[2017-12-17] MEDS: METOCLOPRAMIDE HCL 10 MG/2 ML VIAL. IV (14:31)
[2017-12-18] MEDS: ACETAMINOPHEN 325 MG TABLET. PO ×2 (01:13→11:48)
[2017-12-18 06:36] LABS: BLOOD UREA NITROGEN 11 mg/dL (7-20); CALCIUM 8.2 mg/dL (8.5-10.1); CREATININE 1.2 mg/dL (0.6-1.0); GFR 53.5; GLUCOSE 90 mg/dL (70-99); SODIUM 139 mmol/L (136-145)
[2017-12-18 06:37] LABS: ANION GAP 9 (6-14); CARBON DIOXIDE 24 mmol/L (21-32); CHLORIDE 106 mmol/L (98-107); POTASSIUM 4.1 mmol/L (3.5-5.1)
[2017-12-18] MEDS: IV RINGERS,LACTATED 1000ML 1,000 ML IV (06:45)
[2017-12-18] MEDS: FERROUS SULFATE 325 MG TABLET. PO (07:06)
[2017-12-18] MEDS: ASPIRIN ENTERIC COATED 81 MG TABLET.DR. PO (07:10)
[2017-12-18] MEDS: METOCLOPRAMIDE HCL 10 MG/2 ML VIAL. IV (07:48)
[2017-12-18] MEDS: PANTOPRAZOLE IV PUSH 40 MG VIAL. IVP (07:48)
[2017-12-18] MEDS: HYDROXYCHLOROQUINE 200 MG TABLET PO (09:00)
[2017-12-18] MEDS: ONDANSETRON PF 4 MG/2 ML VIAL. IV (09:52)
== END 2017-12-18 14:27 | disposition home or self-care (01) | DRG 781 ==
LOC: ER 18:32 → 3 NORTH 20:29
DX: O26.891 Other specified pregnancy related conditions, first trimester (principal); K85.90 Acute pancreatitis without necrosis or infection, unspecified; M32.9 Systemic lupus erythematosus, unspecified; O26.831 Pregnancy related renal disease, first trimester; O21.0 Mild hyperemesis gravidarum; N28.9 Disorder of kidney and ureter, unspecified; Z3A.11 11 weeks gestation of pregnancy; Z90.49 Acquired absence of other specified parts of digestive tract; O99.611 Diseases of the digestive system complicating pregnancy, first trimester
CPT/HCPCS: 36415; 76801; 80048; 80053; 81001; 81025; 83690; 85025; 87086; 96374; 99285-25; C9113; J2405; J2765; J7042; J7120

== ENCOUNTER 2018-03-05 19:13 | Emergency (ER) | payer SELFPAY ==
[2018-03-05] MEDS: ALBUTEROL SULFATE 2.5 MG/3 ML NEBU. NEB (20:15)
== END 2018-03-05 21:55 | disposition home or self-care (01) ==
LOC: ER 21:55
DX: O99.512 Diseases of the respiratory system complicating pregnancy, second trimester (principal); R05 Cough; Z3A.22 22 weeks gestation of pregnancy
CPT/HCPCS: 76815; 94640; 99284; J7613